=== PATIENT | male | born 1975 | race American Indian/Alaskan Native ===

== ENCOUNTER 2016-08-14 15:37 | Emergency (ER) | payer SELFPAY ==
[~2016-08-14 15:37] MED LIST: ADRENALIN ONE; ATROPINE 0.1% (CARDIAC) ONE; CALCIUM CHLORIDE IV ONE; D50W (25GM) IV ONE; SODIUM BICARBONATE IV ONE
--- NOTE | 2016-08-14 17:08 | Emergency Department Report ---
ED CPR HPI - General Chief Complaint: Cardiac Arrest/CPR Stated Complaint: CARDIAC ARREST Time Seen by Provider: 08/14/16 16:46 Source: EMS Mode of arrival: Stretcher Limitations: Other - History of Present Illness MD Complaint: found unresponsive Onset/Timin -: minute(s) Place: home AED Applied by Bystander/Senior [employer] Developer: No Downtime Before ACLS Arrival (mins): 15 Initial Findings in the Field: unresponsive, no respirations, no pulse, systole ROSC in the Field: No Associated Injuries: No Treatments Prior to Arrival: other airway device, chest compressions, epinephrine mgs # (4) ED Review of Systems ROS: Stated complaint: CARDIAC ARREST Other details as noted in HPI Comment: Unobtainable due to pts medical conditions ED Past Medical Hx - Past Medical History Previous Medical History?: No ED Physical Exam - General Limitations: Other General appearance: obtunded - Head Head exam: Present: atraumatic, normocephalic - Eye Eye exam: Present: other (pupils dilated and fixed) - ENT ENT exam: Present: normal exam, normal orophraynx, mucous membranes moist - Neck Neck exam: Present: normal inspection - Respiratory Respiratory exam: Present: normal lung sounds bilaterally. Absent: respiratory distress - Cardiovascular Cardiovascular Exam: Present: other (no pulses). Absent: systolic murmur, diastolic murmur, rubs, gallop - GI/Abdominal GI/Abdominal exam: Present: soft, normal bowel sounds - Rectal Rectal exam: Present: deferred - Extremities Exam Extremities exam: Present: normal inspection - Back Exam Back exam: Present: normal inspection - Skin Skin exam: Present: other (cold extremities). Absent: rash - Intubation Sedative: none Laryngoscope: Annetta Size: 3 ET Tube Size: 7.5 Tube Secured Location: lips Tube Placement Confirmation: visualized tube passing t, equal breath sounds bilat, confirmation by capnometr Patient Tolerated Procedure: well Intubation Complications: none Critical care attestation.: If time is entered above; I have spent that time in minutes in the direct care of this critically ill patient, excluding procedure time. ED Disposition Clinical Impression: Cardiac arrest Disposition: Is pt being admited?: No Does the pt Need Aspirin: No Condition: Stable Time of Disposition: 17:08
== END 2016-08-14 17:57 ==
LOC: ED 15:37
DX: I46.9 Cardiac arrest, cause unspecified (principal)
CPT/HCPCS: 31500; 82962; 92950; 99285; J0171; J0461